=== PATIENT | male | born 1950 | race Caucasian/White ===

== ENCOUNTER 2019-08-27 12:12 | Emergency (ER) | payer MEDICARE, OTHER, SELFPAY ==
[2019-08-27 12:19] VITALS: BP 121/73; PULSE 70; RESP 16; TEMP 36.8; O2SAT 100
--- NOTE | 2019-08-27 12:31 | ED.GENADULT ---
HPI - General Adult General Chief complaint: Upper Respiratory Infection Stated complaint: cough/chest congestion Time Seen by Provider: 08/27/19 12:35 Source: patient and RN notes reviewed Mode of arrival: ambulatory Limitations: no limitations History of Present Illness HPI narrative: This is a 69 years old male presented office for evaluation of chest congestion for one 1-1/2-week. Cough is getting worse for the last 4 to 5-day. Stated he coughs so hard yesterday that he did not know that he passed out till his shouted at him. He also reports intermittent dizziness, described as disequilibrium. Denies chest pain, palpitation, shortness of breath, vomiting, or fever. He took cnea-ypo-lotgnlw Robitussin for his symptoms. His is sick with cold symptoms first before she passed around to him. Related Data Home Medications Medication Instructions Recorded Confirmed finasteride mg 06/27/19 06/27/19 Allergies Allergy/AdvReac Type Severity Reaction Status Date / Time No Known Allergies Allergy Unknown Verified 08/27/19 12:25 Review of Systems Review of Systems: Narrative: CONSTITUTIONAL: Denies fever or sweats. EYES: Denies visual changes ENT: Denies rhinorrhea, congestion, sore throat, otalgia. CARDIOVASCULAR: Denies chest pain, palpitation RESPIRATORY: Reports dyspnea and chest tightness when he cough GASTROINTESTINAL: Denies abdominal pain, nausea, vomiting, diarrhea. SKIN: Denies rash MUSCULOSKELETAL: Denies acute back pain NEUROLOGIC: Denies lightheaded PMFSH Past Medical History Medical History Asymptomatic hypertension Benign essential HTN BPH (benign prostatic hyperplasia) CKD (chronic kidney disease) CKD (chronic kidney disease) stage 3, GFR 30-59 ml/min Diverticulitis large intestine w/o perforation or abscess w/o bleeding Diverticulosis HTN (hypertension) Kidney cyst, acquired Right Pigmented skin lesion suspicious for malignant neoplasm Spondylosis, thoracic Umbilical hernia small, fat containing Surgical History Surgical History H/O blepharoplasty Family History Family History Father Hypertension Sibling Family history of kidney disease Family history of malignant neoplasm of kidney Patient's sister is Social History Social History Smoking status: Never smoker Second hand tobacco smoke exposure: No Alcohol intake: current Drinks per week: 1 Substance use: never Substance use type: does not use Gender identity (if verbalized by the patient): Male Comments At time of signature, I agree with nursing past medical, surgical, social and family history. There is no relevant family history pertinent to the presenting complaint. Exam Narrative: Exam Narrative: GENERAL: This is a well-nourished, well-developed patient, in no apparent distress. EYES: RIDGE. EMOI. No nystagmus noted. Sclera clear/white. Vision is grossly intact. EARS: External ears normal, auditory canals clear and without drainage, TMs normal without perforation. Hearing grossly intact. NOSE: External nose normal with no obvious nasal discharge, nares without redness, no rhinorrhea. THROAT: Mucous membranes moist, posterior pharynx clear. NECK: Neck supple, non-tender without lymphadenopathy, masses or thyromegaly. CARDIOVASCULAR: Regular rate and rhythm without murmurs, gallops, or rubs. RESPIRATORY: Clear to auscultation but diminished in the lower lobe, with occasional coughing during examination. Breath sounds equal bilaterally. No wheezes, rales, or rhonchi. GASTROINTESTINAL: Abdomen soft, non-tender, nondistended. Bowel sounds are active.No guarding. SKIN: warm, intact with no suspicious rash. NEURO: awake, alert, and oriented to person, place and time. There were no
== END 2019-08-27 12:45 | disposition home or self-care (01) ==
PROVIDERS: Emergency Provider Nurse Practitioner; PCP Family Medicine
DX: J06.9 Acute upper respiratory infection, unspecified (principal); N40.0 Benign prostatic hyperplasia without lower urinary tract symptoms; I12.9 Hypertensive chronic kidney disease with stage 1 through stage 4 chronic kidney disease, or unspecified chronic kidney disease; N18.3 Chronic kidney disease, stage 3 (moderate); M47.814 Spondylosis without myelopathy or radiculopathy, thoracic region
CPT/HCPCS: 99213; G0463

== ENCOUNTER → 2020-09-11 00:19 | Outpatient (CLI) | payer MEDICARE, OTHER, SELFPAY ==
[2020-09-11 19:13] LABS: SARS-CoV-2 RNA PCR Negative
== END ==
PROVIDERS: PCP Family Medicine; Visit Provider Internal Medicine Gastroenterology
DX: Z01.812 Encounter for preprocedural laboratory examination (principal); Z20.822 Contact with and (suspected) exposure to COVID-19
CPT/HCPCS: C9803; U0003; U0005

== ENCOUNTER 2020-09-15 02:12 | Day surgery (SDC) | payer MEDICARE, OTHER, SELFPAY ==
[2020-08-31 15:40] VITALS: BMI 30.2
[2020-09-15 07:24] VITALS: BP 134/81; PULSE 77; RESP 20; O2SAT 97
[2020-09-15] MEDS: LACTATED RINGERS 1,000 ML 150 ML IV CONT (07:31)
--- NOTE | 2020-09-15 07:43 | WPDANESEPPF ---
Anes - Initial Pre Proc Eval Procedure: Operation Date: 09/15/20 08:30 Proposed Procedures p Esophagogastroduodenoscopy - Marcus Irwin MD Date/Time: 09/15/20 07:43 Surgeon: Marcus Irwin MD Pre Op Diagnosis: Dysphagia Patient Data Age: 70 Gender: M Height: 6 ft 1 in Weight: 104.8 kg Last Vital Signs Pulse 77 09/15/20 07:24 Resp 20 09/15/20 07:24 BP 134/81 09/15/20 07:24 Pulse Ox 97 09/15/20 07:24 Allergies Allergy/AdvReac Type Severity Reaction Status Date / Time No Known Allergies Allergy Unknown Verified 09/15/20 07:22 Home Medications Medication Instructions Recorded Confirmed Type finasteride 5 mg PO DAILY 06/27/19 08/31/20 History losartan 100 mg tablet 100 mg PO DAILY #30 tablet 07/01/20 08/31/20 Rx amlodipine 5 mg tablet 5 mg PO DAILY #30 tablet 08/31/20 08/31/20 Rx aspirin 81 mg PO DAILY 08/31/20 08/31/20 History tamsulosin 0.4 mg capsule 0.4 mg PO DAILY #30 cap 09/01/20 09/01/20 Rx Patient hx anesthesia problems: none Family hx anesthesia problems: none PMFSH Past Medical History Medical History Asymptomatic hypertension Benign essential HTN BPH (benign prostatic hyperplasia) CKD (chronic kidney disease) CKD (chronic kidney disease) stage 3, GFR 30-59 ml/min Diverticulitis large intestine w/o perforation or abscess w/o bleeding Diverticulosis HTN (hypertension) Kidney cyst, acquired Right Pigmented skin lesion suspicious for malignant neoplasm Spondylosis, thoracic Umbilical hernia small, fat containing Surgical History Surgical History H/O blepharoplasty Family History Family History Father Hypertension Sibling Family history of kidney disease Family history of malignant neoplasm of kidney Patient's sister is Social History Social History (Updated 08/31/20 @ 13:44 by Soraida Keith) Social History: Smoking status: Former smoker Second hand tobacco smoke exposure: No Alcohol intake: never Drinks per week: 1 Substance use: never Substance use type: does not use Living arrangements: with family Gender identity (if verbalized by the patient): Male Spiritual care concerns: No Anes - Eval Final PreProcedure Day of Procedure 09/15/20 07:43 Patient weight: obese Heart: regular rate and rhythm Lungs: clear to auscultation Airway: Mallampati scale class II Neurological: alert and oriented Last oral intake: >/= 8 hours ASA classification: III Emergent: no Anesthetic plan: proceed Anesthesia type and monitoring: general GIVS and standard monitoring Informed Consent: The patient's anesthetic plan and its attendant risks and benefits were discussed with the patient/family/POA. Questions were solicited and answers provided to the satisfaction of the patient/family/POA.
--- NOTE | 2020-09-15 08:35 | PM.HPGS ---
History of Present Illness History of Present Illness Consent: Risks, benefits, and alternatives have been discussed and questions answered. Patient agrees to proceed with procedure. Chief complaint: Dysphagia Narrative: Juan Ramon Hay is a 70 year old male with choking after eating certain food and cough, feels like may go to wrong pipe . Never had EGD Review of Systems Constitutional: Constitutional: Denies headache(s) and Denies weakness Eyes: Eyes: Denies blurry vision ENT: Reports Normal hearing present, Denies headache(s) and Denies neck pain Cardiovascular: Cardiovascular: Denies chest pain and Denies dyspnea Respiratory: Respiratory: Denies dyspnea Gastrointestinal: Gastrointestinal: Reports no additional gastrointestinal complaints Genitourinary: Genitourinary: Denies dysuria Musculoskeletal: Musculoskeletal: Denies neck pain Integumentary/Breasts: Skin/Breast: Denies dry skin Neurologic: Reports Normal hearing present, Denies headache(s) and Denies weakness Psychiatric: Psychiatric: Denies anxiety Endocrine: Endocrine: Denies change in body appearance Hematologic/Lymphatic: Hematologic/Lymphatic: Denies easy bleeding Allergic/Immunologic: Allergic/Immunologic: Denies urticaria PMFSH Past Medical History Medical History Asymptomatic hypertension Benign essential HTN BPH (benign prostatic hyperplasia) CKD (chronic kidney disease) CKD (chronic kidney disease) stage 3, GFR 30-59 ml/min Diverticulitis large intestine w/o perforation or abscess w/o bleeding Diverticulosis HTN (hypertension) Kidney cyst, acquired Right Pigmented skin lesion suspicious for malignant neoplasm Spondylosis, thoracic Umbilical hernia small, fat containing Surgical History Surgical History H/O blepharoplasty Family History Family History Father Hypertension Sibling Family history of kidney disease Family history of malignant neoplasm of kidney Patient's sister is Social History Social History (Updated 08/31/20 @ 13:44 by Soraida Keith) Social History: Smoking status: Former smoker Second hand tobacco smoke exposure: No Alcohol intake: never Drinks per week: 1 Substance use: never Substance use type: does not use Living arrangements: with family Gender identity (if verbalized by the patient): Male Spiritual care concerns: No Meds Home Medications and Allergies Home Medications Medication Instructions Recorded Confirmed Type finasteride 5 mg PO DAILY 06/27/19 08/31/20 History losartan 100 mg tablet 100 mg PO DAILY #30 tablet 07/01/20 08/31/20 Rx amlodipine 5 mg tablet 5 mg PO DAILY #30 tablet 08/31/20 08/31/20 Rx aspirin 81 mg PO DAILY 08/31/20 08/31/20 History tamsulosin 0.4 mg capsule 0.4 mg PO DAILY #30 cap 09/01/20 09/01/20 Rx Allergies Allergy/AdvReac Type Severity Reaction Status Date / Time No Known Allergies Allergy Unknown Verified 09/15/20 07:22 Vital Signs Vital Signs - 24 hr 09/15/20 07:24 Pulse Rate 77 Respiratory Rate 20 Blood Pressure 134/81 Pulse Oximetry 97 Exam Const: General: comfortable and no acute distress HENMT: General nose exam: Normal nares present Eyes: General: appearance normal, both eyes and all related structures Neck: Neck: no JVD Resp: Auscultation: clear to auscultation bilaterally Cardio: Rate: regular rate Rhythm: regular rhythm GI: Inspection: non-distended GI Palp: Yes Soft to palpation Skin: General skin exam: normal color Neuro: General: gait normal Speech: normal speech Extrem: General: normal to inspection Psych: Mental Status: mental status grossly normal Assessment and Plan Assessment and plan (1) Choking: Code(s): T17.308A - Unspecified foreign body in larynx causing other injury, initial encount
[2020-09-15 08:51] VITALS: BP 91/64; PULSE 72; RESP 15; O2SAT 97
[2020-09-15 09:01] VITALS: BP 112/68; PULSE 72; RESP 16; O2SAT 97
[2020-09-15 09:11] VITALS: BP 128/64; PULSE 70; RESP 14; O2SAT 97
== END 2020-09-15 09:30 | disposition home or self-care (01) ==
PROVIDERS: PCP Family Medicine; Visit Provider Internal Medicine Gastroenterology
PROC: 0DJ08ZZ Inspection of Upper Intestinal Tract, Via Natural or Artificial Opening Endoscopic (ICD-10-PCS; CPT 43235; principal; 2020-09-15 08:30)
DX: R13.10 Dysphagia, unspecified (principal); R07.89 Other chest pain; K29.50 Unspecified chronic gastritis without bleeding; K21.00 Gastro-esophageal reflux disease with esophagitis, without bleeding; K44.9 Diaphragmatic hernia without obstruction or gangrene; I12.9 Hypertensive chronic kidney disease with stage 1 through stage 4 chronic kidney disease, or unspecified chronic kidney disease; N18.30 Chronic kidney disease, stage 3 unspecified; N40.0 Benign prostatic hyperplasia without lower urinary tract symptoms; Z87.891 Personal history of nicotine dependence; E66.9 Obesity, unspecified; Z68.30 Body mass index [BMI] 30.0-30.9, adult
CPT/HCPCS: 43239; 88305; J2001; J2704; J7120

== ENCOUNTER 2021-05-25 08:34 | Outpatient (CLI) | payer MEDICARE, OTHER, SELFPAY ==
[2021-05-25 09:25] LABS: Alanine Aminotransferase 28 U/L (4-50); Albumin Level 4.1 g/dL (3.5-5.1); Alkaline Phosphatase 40 U/L (38-126); Anion Gap 7 mmol/L (8-16); Aspartate Amino Transferase 29 U/L (17-59); Bilirubin,Total 0.7 mg/dL (0.2-1.3); Blood Urea Nitrogen 23 mg/dL (9-20); Calcium 9.3 mg/dL (8.4-10.2); Carbon Dioxide 27 mmol/L (22-30); Chloride 105 mmol/L (98-107); Estimated Glomerular Filt Rate 55; Glucose 116 mg/dL (65-110); Potassium 4.6 mmol/L (3.4-5.0); Sodium 139 mmol/L (137-145)
== END 2021-05-25 08:35 | disposition home or self-care (01) ==
PROVIDERS: PCP Family Medicine; Visit Provider Nurse Practitioner Gerontology
DX: N18.31 Chronic kidney disease, stage 3a (principal)
CPT/HCPCS: 36415; 80053

== ENCOUNTER 2021-08-01 08:15 | Day surgery (SDC) | payer MEDICARE, OTHER, SELFPAY ==
[2021-07-20 13:40] VITALS: BMI 30.5
[2021-08-01 11:01] VITALS: BP 119/78; PULSE 69; RESP 18; TEMP 35.7; O2SAT 100
[2021-08-01] MEDS: LACTATED RINGERS 1,000 ML 150 ML IV CONT (11:04)
--- NOTE | 2021-08-01 11:59 | WPDANESEPPF ---
Anes - Initial Pre Proc Eval Procedure: Operation Date: 08/01/21 13:15 Proposed Procedures p Screening Colonoscopy - Marcus Irwin MD Date/Time: 08/01/21 11:59 Surgeon: Marcus Irwin MD Pre Op Diagnosis: neoplasm screening Patient Data Age: 71 Gender: M Height: 1.85 m Weight: 101.5 kg Last Vital Signs Temp 35.7 C L 08/01/21 11:01 Pulse 69 08/01/21 11:01 Resp 18 08/01/21 11:01 BP 119/78 08/01/21 11:01 Pulse Ox 100 08/01/21 11:01 Allergies Allergy/AdvReac Type Severity Reaction Status Date / Time No Known Allergies Allergy Unknown Verified 08/01/21 11:00 Home Medications Medication Instructions Recorded Confirmed Type finasteride 5 mg PO DAILY 06/27/19 08/01/21 History aspirin 81 mg PO DAILY 08/31/20 08/01/21 History amlodipine 5 mg tablet 5 mg PO DAILY #90 tablet 02/01/21 08/01/21 Rx losartan 100 mg tablet See Rx Instructions .ROUTE 07/22/21 08/01/21 Rx .COMPLEX #90 tablet omeprazole 20 mg capsule,delayed 20 mg PO DAILY #30 cap 08/01/21 08/01/21 Rx release Patient hx anesthesia problems: none Family hx anesthesia problems: none Results Review: All pre-operative results and documents have been reviewed as part of the pre-operative evaluation. [facility] Past Medical History Medical History Asymptomatic hypertension Benign essential HTN BPH (benign prostatic hyperplasia) Choking CKD (chronic kidney disease) CKD (chronic kidney disease) stage 3, GFR 30-59 ml/min Diverticulitis large intestine w/o perforation or abscess w/o bleeding Diverticulosis Esophagitis determined by endoscopy HTN (hypertension) Hyperlipidemia Kidney cyst, acquired Right Pigmented skin lesion suspicious for malignant neoplasm Spondylosis, thoracic Umbilical hernia small, fat containing Surgical History Surgical History H/O blepharoplasty Family History Family History Father Hypertension Sibling Family history of kidney disease Family history of malignant neoplasm of kidney Patient's sister is Social History Social History (Updated 06/07/21 @ 13:32 by Soraida Keith) Social History: Smoking status: Never smoker Second hand tobacco smoke exposure: No Alcohol intake: never Alcohol use details: rarely Substance use: never Substance use type: does not use Living arrangements: with family Gender identity (if verbalized by the patient): Male Sexual Orientation (if Verbalized by the Patient): Straight or Heterosexual Spiritual care concerns: No Anes - Eval Final PreProcedure Day of Procedure 08/01/21 11:59 Patient weight: overweight Heart: regular rate and rhythm Lungs: clear to auscultation and normal air movement Airway: Mallampati scale class II Neurological: alert and oriented Last oral intake: >/= 8 hours ASA classification: III Emergent: no Anesthetic plan: proceed Anesthesia type and monitoring: general GIVS and standard monitoring Results Review: All pre-operative results and documents have been reviewed as part of the pre-operative evaluation. Informed Consent: The patient's anesthetic plan and its attendant risks and benefits were discussed with the patient/family/POA. Questions were solicited and answers provided to the satisfaction of the patient/family/POA.
--- NOTE | 2021-08-01 13:04 | PM.HPGS ---
History of Present Illness History of Present Illness Consent: Risks, benefits, and alternatives have been discussed and questions answered. Patient agrees to proceed with procedure. Chief complaint: neoplasm screening Narrative: Juan Ramon Hay is a 71 year old male with colon polyp about 8 years ago. Review of Systems Constitutional: Constitutional: Denies headache(s) and Denies weakness Eyes: Eyes: Denies blurry vision ENT: Reports Normal hearing present, Denies headache(s) and Denies neck pain Cardiovascular: Cardiovascular: Denies chest pain and Denies dyspnea Respiratory: Respiratory: Denies dyspnea Gastrointestinal: Gastrointestinal: Reports no additional gastrointestinal complaints Genitourinary: Genitourinary: Denies dysuria Musculoskeletal: Musculoskeletal: Denies neck pain Integumentary/Breasts: Skin/Breast: Denies dry skin Neurologic: Reports Normal hearing present, Denies headache(s) and Denies weakness Psychiatric: Psychiatric: Denies anxiety Endocrine: Endocrine: Denies change in body appearance Hematologic/Lymphatic: Hematologic/Lymphatic: Denies easy bleeding Allergic/Immunologic: Allergic/Immunologic: Denies urticaria PMFSH Past Medical History Medical History Asymptomatic hypertension Benign essential HTN BPH (benign prostatic hyperplasia) Choking CKD (chronic kidney disease) CKD (chronic kidney disease) stage 3, GFR 30-59 ml/min Diverticulitis large intestine w/o perforation or abscess w/o bleeding Diverticulosis Esophagitis determined by endoscopy HTN (hypertension) Hyperlipidemia Kidney cyst, acquired Right Pigmented skin lesion suspicious for malignant neoplasm Spondylosis, thoracic Umbilical hernia small, fat containing Surgical History Surgical History H/O blepharoplasty Family History Family History Father Hypertension Sibling Family history of kidney disease Family history of malignant neoplasm of kidney Patient's sister is Social History Social History (Updated 06/07/21 @ 13:32 by Soraida Keith) Social History: Smoking status: Never smoker Second hand tobacco smoke exposure: No Alcohol intake: never Alcohol use details: rarely Substance use: never Substance use type: does not use Living arrangements: with family Gender identity (if verbalized by the patient): Male Sexual Orientation (if Verbalized by the Patient): Straight or Heterosexual Spiritual care concerns: No Meds Home Medications and Allergies Home Medications Medication Instructions Recorded Confirmed Type finasteride 5 mg PO DAILY 06/27/19 08/01/21 History aspirin 81 mg PO DAILY 08/31/20 08/01/21 History amlodipine 5 mg tablet 5 mg PO DAILY #90 tablet 02/01/21 08/01/21 Rx losartan 100 mg tablet See Rx Instructions .ROUTE 07/22/21 08/01/21 Rx .COMPLEX #90 tablet omeprazole 20 mg capsule,delayed 20 mg PO DAILY #30 cap 08/01/21 08/01/21 Rx release Allergies Allergy/AdvReac Type Severity Reaction Status Date / Time No Known Allergies Allergy Unknown Verified 08/01/21 11:00 Vital Signs Vital Signs - 24 hr 08/01/21 11:01 Temperature 96.3 F L Pulse Rate 69 Respiratory Rate 18 Blood Pressure 119/78 Pulse Oximetry 100 Exam Const: General: comfortable and no acute distress HENMT: General nose exam: Normal nares present Eyes: General: appearance normal, both eyes and all related structures Neck: Neck: no JVD Resp: Auscultation: clear to auscultation bilaterally Cardio: Rate: regular rate Rhythm: regular rhythm GI: Inspection: non-distended GI Palp: Yes Soft to palpation Skin: General skin exam: normal color Neuro: General: gait normal Speech: normal speech Extrem: General: normal to inspection Psych: Mental Status: mental status grossly n
[2021-08-01 13:20] VITALS: BP 108/82; PULSE 70; RESP 14; O2SAT 94
[2021-08-01 13:30] VITALS: BP 121/95; PULSE 62; RESP 12; O2SAT 94
[2021-08-01 13:40] VITALS: BP 138/74; PULSE 67; RESP 16; O2SAT 99
== END 2021-08-01 13:54 | disposition home or self-care (01) ==
PROVIDERS: PCP Family Medicine; Visit Provider Internal Medicine Gastroenterology
PROC: 0DJD8ZZ Inspection of Lower Intestinal Tract, Via Natural or Artificial Opening Endoscopic (ICD-10-PCS; CPT 45378; principal; 2021-08-01 13:15)
DX: Z12.11 Encounter for screening for malignant neoplasm of colon (principal); K57.30 Diverticulosis of large intestine without perforation or abscess without bleeding; K64.8 Other hemorrhoids; Z86.010 Personal history of colon polyps; I12.9 Hypertensive chronic kidney disease with stage 1 through stage 4 chronic kidney disease, or unspecified chronic kidney disease; N18.30 Chronic kidney disease, stage 3 unspecified; N40.0 Benign prostatic hyperplasia without lower urinary tract symptoms; E78.5 Hyperlipidemia, unspecified; M47.814 Spondylosis without myelopathy or radiculopathy, thoracic region
CPT/HCPCS: G0105; J2704; J7120

== ENCOUNTER 2023-04-06 08:10 | Emergency (ER) | payer MEDICARE, OTHER, SELFPAY ==
--- NOTE | 2023-04-06 08:20 | ED.EAR ---
HPI - Ear Problem General Chief complaint: Ear Stated complaint: Right Earache Source: patient and RN notes reviewed History of Present Illness HPI Narrative: 73 yo M Presents to urgent care with complaints of right ear pain and muffled sound x 3 days. Denies any fevers, chills, congestion, chest pain, SOB, N/V/D. Related Data Home Medications Medication Instructions Recorded Confirmed aspirin 81 mg tablet 81 mg PO DAILY 08/31/20 04/06/23 atorvastatin 20 mg tablet 20 mg PO DAILY 12/08/22 04/06/23 Allergies Allergy/AdvReac Type Severity Reaction Status Date / Time No Known Allergies Allergy Unknown Verified 04/06/23 08:33 Review of Systems Review of Systems: CONSTITUTIONAL: Denies fever, chills, or sweats. EYES: Denies visual changes, redness, or discharge. ENT: Right ear pain and muffled sound CARDIOVASCULAR: Denies chest pain, palpitations, or edema. RESPIRATORY: Denies cough or dyspnea. GASTROINTESTINAL: Denies abdominal pain, nausea, vomiting, or diarrhea. GENITOURINARY: Denies dysuria or hematuria. SKIN: Denies rash or itching. MUSCULOSKELETAL: Denies back pain, joint pain, or myalgia. NEUROLOGIC: Denies headache, numbness, or weakness. Pertinent positives per HPI. [facility] Past Medical History Medical History Asymptomatic hypertension Benign essential HTN BPH (benign prostatic hyperplasia) Choking Chronic bilateral low back pain without sciatica CKD (chronic kidney disease) CKD (chronic kidney disease) stage 3, GFR 30-59 ml/min Diverticulitis large intestine w/o perforation or abscess w/o bleeding Diverticulitis of large intestine without perforation or abscess Diverticulosis Diverticulosis of colon Esophagitis determined by endoscopy Essential (primary) hypertension Grade I hemorrhoids HTN (hypertension) Hyperlipidemia Internal derangement of knee involving lateral meniscus Kidney cyst, acquired Right Nocturia Pigmented skin lesion suspicious for malignant neoplasm 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, thoracic Tinnitus of both ears Umbilical hernia small, fat containing Vertigo Surgical History Surgical History H/O blepharoplasty Hx of cardiac cath Family History Family History Father Hypertension Sibling Family history of kidney disease Family history of malignant neoplasm of kidney Patient's sister is Social History Social History (Updated 03/08/23 @ 09:23 by Soraida Keith) Social History: Smoking status: Former smoker Second hand tobacco smoke exposure: No Alcohol intake: never Alcohol use details: rarely Substance use: never Substance use type: does not use Lack of Transportation: No Lack of Food: Never True Current Housing: I Have Housing Concerned About Future Housing: No Difficulty Paying Gas/Electric Bills: No Difficulty Paying for Meds: No Currently Unemployed: YES Education: Don't Know Difficulty w/ Childcare or Family Care: No Living arrangements: with family Occupation/Education: retired Gender identity (if verbalized by the patient): Male Sexual Orientation (if Verbalized by the Patient): Straight or Heterosexual Spiritual care concerns: No Agree to blood products: Yes Comments At the time of my signature, I reviewed and agree with the nursing past medical, surgical, social, and family history. There is no relevant family history pertinent to the patient complaint. Exam Narrative: GENERAL: This is a well-nourished, well-developed patient, in no apparent distress. HEAD: normocephalic, atraumatic. EYES: Sclera clear/white. Vision is grossly intact. EARS: External ears normal, auditory canals clear and without drainage, Left TM normal without perforation. Hearing grossly intact. Right TM is partial
[2023-04-06 08:24] VITALS: BP 118/75; PULSE 69; RESP 18; TEMP 35.9; O2SAT 96
== END 2023-04-06 08:39 | disposition home or self-care (01) ==
PROVIDERS: Emergency Provider Nurse Practitioner Family; PCP Family Medicine
DX: H66.90 Otitis media, unspecified, unspecified ear (principal); I12.9 Hypertensive chronic kidney disease with stage 1 through stage 4 chronic kidney disease, or unspecified chronic kidney disease; N18.30 Chronic kidney disease, stage 3 unspecified; Z79.82 Long term (current) use of aspirin; Z87.891 Personal history of nicotine dependence
CPT/HCPCS: 99213; G0463

== ENCOUNTER 2023-05-15 07:28 | Outpatient (CLI) | payer MEDICARE, OTHER, SELFPAY ==
--- NOTE | ~2023-05-15 | CT_ITS ---
EXAMINATION:CT diagnostic chest wo con DATE: 05/15/2023 07:50 INDICATION: Aortic root dilatation. TECHNIQUE: Computed tomography (CT) of the chest was performed without intravenous contrast. Automate d exposure control and iterative reconstruction technique were employed. The dose-length product (DLP ) was 407.98 mGy-cm. COMPARISON: CT abdomen and pelvis 07/19/2017 FINDINGS: There is mild atelectasis bilaterally. No pleural effusion. The heart size is normal. No pe ricardial effusion. The aorta measures 4.2 cm at the sinuses of Valsalva, 3.4 cm at the sinotubular j unction, 4.1 cm in the mid ascending aorta, 3.2 cm cyst at the aortic isthmus, and 2.5 cm in the mid descending aorta. There is severe spondylosis of mid thoracic spine. IMPRESSION: 1. Ectasia of ascending aorta measuring up to 4.2 cm at the sinuses of Valsalva. Reviewed, dictated and finalized at location E. GAGE ASSISTANT IMPRESSION: 1. Ectasia of ascending aorta measuring up to 4.2 cm at the sinuses of Valsalva .
== END 2023-05-15 07:29 | disposition home or self-care (01) ==
PROVIDERS: PCP Family Medicine; Visit Provider Internal Medicine Cardiovascular Disease
DX: I77.810 Thoracic aortic ectasia (principal)
CPT/HCPCS: 71250

== ENCOUNTER 2024-07-08 06:56 | Outpatient (CLI) | payer MEDICARE, OTHER, SELFPAY ==
--- NOTE | ~2024-07-08 | CT_ITS ---
CT diagnostic chest wo [facility] Ordering provider: Harley Fan MD History: 74 years Male with . AORTIC ROOT DILATION . Comparison: None. Technique: CT chest without IV contrast. FINDINGS: VISUALIZED THORACIC INLET: Normal. Radiation reduction technique utilized The dose-length product was 421.57 mGy-cm. MEDIASTINUM: Aorta/coronary arteries: Mild atheromatous disease. Ventricle measures 3.9 cm. Heart/other: The heart is not enlarged. Trace of pericardial effusion. Lymph nodes: No mediastinal or hilar adenopathy. LUNGS: No pulmonary nodules or masses. No infiltrates or effusions. No pneumothorax. VISUALIZED UPPER ABDOMEN: the visualized upper abdomen is normal. MUSCULOSKELETAL: Soft tissues: The superficial soft tissues are normal. Bones: Age appropriate degenerative changes of the spine. IMPRESSION: 1. Ascending aorta measures 3.9 CNM. 2. Trace of pericardial effusion. 3. No acute cardiopulmonary pathology. Reviewed, dictated and finalized at location A. PT GIRL
== END 2024-07-08 06:57 | disposition home or self-care (01) ==
PROVIDERS: PCP Family Medicine; Visit Provider Internal Medicine Cardiovascular Disease
DX: I77.810 Thoracic aortic ectasia (principal)
CPT/HCPCS: 71250

== ENCOUNTER 2024-08-07 11:13 | Outpatient (CLI) | payer MEDICARE, OTHER, SELFPAY ==
--- OUTSIDE RECORDS SUMMARY | 2024-08-07 11:22 | XMS_ITS | Clinical Summary ---
Author Organization [facility] [address] Address [address] [place] [address] Care Team Providers Care Product Technology Scientist Name Role Phone Nicolette Bella MD Primary Care Provider Allergies No known active allergies Medications aspirin 81 mg enteric coated tabletIndications :Abnormal stress test,Benign hypertension Take 1 tablet (81 mg total) by mouth daily 30 tablet 11 0 Active nitroglycerin (NITROSTAT) 0.[address] 1 tablet (0.4 mg total) under the tongue every 5 (five) minutes as needed for chest pain May repeat dose q 5 min, up to 3 doses total 100 tablet 11 0 Active losartan (COZAAR) 100 mg tablet Take 0.5 tablets (50 mg total) by mouth daily 1 Active omeprazole (PriLOSEC) 40 mg capsule Take 1 capsule (40 mg total) by mouth daily 1 Active amLODIPine (NORVASC) 5 mg tablet Take 1 tablet (5 mg total) by mouth daily 1 Active atorvastatin (LIPITOR) 20 mg tabletIndications :Aortic root dilatation (CMS/HCC) (HCC),Coronary artery spasm (HCC) TAKE 1 TABLET(20 MG) BY MOUTH DAILY 90 tablet 4 Active Active Problems Problem Noted Date Diagnosed Date Orthostasis 11/14/2023 Aortic root dilatation (CMS/HCC) 10/08/2020 Coronary artery spasm 12/18/2019 Abnormal stress test 08/29/2019 Lipid screening 08/29/2019 Tussive syncope 08/29/2019 PVC (premature ventricular contraction) 08/29/19 20 SOB (shortness of breath) on exertion 08/29/2019 Overview (08/29/2019): Added automatically from request for surgery [id number] Benign hypertension 09/22/2014 Overview (09/28/2016): HTN (hypertension), benign Abnormal echocardiography 09/22/2014 Overview (09/28/2016): Abnormal stress echo Encounters Date Type Department Care Team Description 07/08/2024 Orders Only [facility] Health Information Management [address] [place] [address] Harley Fan MD 07/02/2024 8:15 AM AUTOMATION CONTROLS EXPERT Office Visit [facility] Cardiology [address] [place] [address] Harley Fan MD Benign hypertension (Primary Dx); Orthostasis; Aortic root dilatation (CMS/HCC) (HCC); PVC (premature ventricular contraction) from Last 3 Months Surgical History Surgery Date Site/Laterality Comments HERNIA REPAIR age 7 KNEE ARTHROSCOPY '06, '07 VASECTOMY EYE SURGERY BLEPHAROPLASTY Bilateral Medical History Medical History Date Comments BPH (benign prostatic hyperplasia) Arthritis SOB (shortness of breath) on exertion Benign hypertension Abnormal stress test Tussive syncope PVC (premature ventricular contraction) Abnormal ECG Family History Medical History Relation Name Comments cerebral hemorrahage Father d/t blo dd thinners Cerebral hemorrahage Mother Heart attack Paternal Grandfather Relation Name Status Comments Father Mother Paternal Grandfather Social History Tobacco Use Types Packs/Day Years Used Date Smoking Tobacco: Never Smokeless Tobacco: Never Tobacco Cessation:Counseling Given: Not Answered Alcohol Use Standard Drinks/Week Comments No 0 (1 standard drink = 0.6 oz pur e alcohol) Sex and Gender Information Value Date Recorded Sex Assigned at Not on file Legal Sex Male 12:45 AM AUTOMATION CONTROLS EXPERT Gender Identity Not on file Sexual Orientation Not on file Obstetrics History Last Filed Vital Signs Vital Sign Reading Time Taken Comments Blood Pressure 104/68 07/02/2024 8:21 AM AUTOMATION CONTROLS EXPERT Pulse 73 07/02/2024 8:21 AM AUTOMATION CONTROLS EXPERT Temperature 36.6 C (97.8 F) 11/11/2019 6:45 AM CDT Respiratory Rate 16 11/11/2019 6:45 AM CDT Oxygen Saturation 95% 07/02/2024 8:21 AM AUTOMATION CONTROLS EXPERT Inhaled Oxygen Concentration - - Weight 104.8 kg (231 lb) 07/02/2024 8:21 AM AUTOMATION CONTROLS EXPERT Height 185.4 cm (6' 1 ) 07/02/2024 8:21 AM AUTOMATION CONTROLS EXPERT Body Mass Index 30.48 07/02/2024 8:21 AM AUTOMATION CONTROLS EXPERT Plan of Treatment Health Maintenance Due Date Last Done Comments Colon Cancer Screening-Colonoscopy 1950 Depression Screening 1950 Hepatitis C Screening 1950 DTaP/Tdap/Td Vaccine (1 - Tdap) 02/17/1963 Hepatitis B Screening 02/17/1970 Zoster Vaccine (1 of 2) 02/17/2002 Well Visit 65+ 02/17/2017 Fall Risk Assessment 11/10/2020 11/11/2019, 08/29/19 20 Influenza Vaccine (#1) 2024 9, 03/24/2018, 03/19/2017 Pneumococcal vaccine 65+ Completed 03/24/2018, 02/24 Medical Devices Implanted Type Area Monorail Helper Device Identifier Shelf Expiration Date Model / Serial / Lot [employer] [id number] Device Closure Angio-Seal Vip Bondek-Plus Polyglyd L70 Cm Od6 Fr Odsec.035 In Vascular - [id number] Implanted:Qty: 1 on 11/11/2019 by Kalpana Berry MD at [facility] [employer] [id number] / / Procedures Procedure Name Priority Date/Time Associated Diagnosis Comments SCAN - RADIOLOGY/IMAGING 07/08/2024 from Last 3 Months Results * SCAN - RADIOLOGY/IMAGING (07/08/2024) Anatomical Region Laterality Modality Other us Harley Fan MD Final Res ult from Last 3 Months Insurance MEDICARE [employer] [place] [employer] [place] Advance Directives For more information, please contact: [phone] * Full Code (Latest Code Status on File) Date Activated Date Inactivated Comments 11/11/2019 9:33 AM 11/11/2019 4:09 PM Care Teams Product Technology Scientist Relationship Specialty Start Date End Date Nicolette Bella MD [address] [place] [id number] PCP - General Family Medicine 08/20/19
--- OUTSIDE RECORDS SUMMARY | 2024-08-07 11:22 | XMS_ITS | Referral Summary ---
Author Organization [place] [address] Address [address] [facility] [address] [place] [address] Care Team Providers Care Line Construction Superintendent Name Role Phone Nicolette Bella MD Primary Care Provider Encounters Date Type Department Care Team Description 07/08/2024 Orders Only [facility] Health Information Management [address] [place] [address] Harley Fan MD 07/02/2024 8:15 AM TENANT COORDINATOR Office Visit [facility] Cardiology [address] [place] [address] [address] [place] [address] Harley Fan MD Benign hypertension (Primary Dx); Orthostasis; Aortic root dilatation (CMS/HCC) (HCC); PVC (premature ventricular contraction) from Last 3 Months Allergies No known active allergies Medications aspirin [...] (08/29/2019): Added automatically from request for surgery [id number] Benign hypertension 09/22/2014 Overview (09/28/2016): HTN (hypertension), benign Abnormal echocardiography 09/22/2014 Overview (09/28/2016): Abnormal stress echo Social History Tobacco Use Types Packs/Day Years Used Date Smoking Tobacco: Never Smokeless Tobacco: Never Tobacco Cessation:Counseling Given: Not Answered Alcohol Use Standard Drinks/Week Comments No 0 (1 standard drink = 0.6 oz pur e alcohol) Sex and Gender Information Value Date Recorded Sex Assigned at Not on file Legal Sex Male 12:45 AM TENANT COORDINATOR Gender Identity Not on file Sexual Orientation Not on file Last Filed Vital Signs Vital Sign Reading Time Taken Comments Blood Pressure 104/68 07/02/2024 8:21 AM TENANT COORDINATOR Pulse 73 07/02/2024 8:21 AM TENANT COORDINATOR Temperature 36.6 C (97.8 F) 11/11/2019 6:45 AM CDT Respiratory Rate 16 11/11/2019 6:45 AM CDT Oxygen Saturation 95% 07/02/2024 8:21 AM TENANT COORDINATOR Inhaled Oxygen Concentration - - Weight 104.8 kg (231 lb) 07/02/2024 8:21 AM TENANT COORDINATOR Height 185.4 cm (6' 1 ) 07/02/2024 8:21 AM TENANT COORDINATOR Body Mass Index 30.48 07/02/2024 8:21 AM TENANT COORDINATOR Plan of Treatment Not on file Medical Devices Implanted Type Area Stylist Assistant Device Identifier Shelf Expiration Date Model / Serial / [facility] [id number] Device Closure Angio-Seal Vip Bondek-Plus Polyglyd L70 Cm Od6 Fr Odsec.035 In Vascular - [id number] Implanted:Qty: 1 on 11/11/2019 [facility] [id number] / / Procedures Procedure Name Priority Date/Time Associated Diagnosis Comments SCAN - RADIOLOGY/IMAGING 07/08/2024 from Last 3 Months Results * SCAN - RADIOLOGY/IMAGING (07/08/2024) Anatomical Region Laterality Modality Other us Harley Fan MD Final Res ult from Last 3 Months Insurance MEDICARE [facility] [place] MEDICARE [employer] [place] [employer] [place] Advance Directives For more information, please contact: [phone] * Full Code (Latest Code Status on File) Date Activated Date Inactivated Comments 11/11/2019 9:33 AM 11/11/2019 4:09 PM Care Teams Line Construction Superintendent Relationship Specialty Start Date End Date Nicolette Bella MD [address] [address] PCP - General Family Medicine 08/20/19
--- OUTSIDE RECORDS SUMMARY | 2024-08-07 11:22 | XMS_ITS | Continuity of Care Document ---
Author Organization [facility] Address [address] [place] [address] [address] [place] [address] Phone Care Team Providers Care Casework Manager Name Role Phone Mike Galo Unavailable Unavailable [...] Diagnoses Date Provider Providers Copied on Encounter [facility], [address] [place] [address] [address], [place], [place], [id number], [place] tel:[phone] [facility] No Information Mar-0 3-200 [address] [place], [address], [place]. tel:[phone] [facility], [address] [place] [address] [address], [place], [place], [id number], [place] tel:[phone] [facility] No Information Dec-0 3-200 7 [address] [place], [address], [place]. tel: [phone] [facility], [address] [place] [address] [address], [place], [place], [id number], [place] tel:[phone] [facility] No Information Oct-2 2-200 7 [address] [place], [address], [place]. tel:[phone] [facility], [address] [place] [address] [address], [place], [place], [id number], [place] tel:[phone] [facility] No Information Oct-0 8-200 7 [address] [place], [address], [place]. tel:[phone] Office Consultation [facility], [address] [place] [address] [address], [place], [place], [id number], [place] tel:[phone] [facility] No Information Sep-2 0-200 7 [address] [place], [address], [place]. tel:[phone] Referring Provider: Darryn Gómez MD [address], [address] [place], [address] . tel:[phone] Family History Family Member Type Diagnosis Age [...]
[2024-08-07 12:39] LABS: Alanine Aminotransferase 40 U/L (6-50); Alkaline Phosphatase 41 U/L (38-126); Anion Gap 9 mmol/L (4-12); Aspartate Amino Transferase 34 U/L (17-59); Bilirubin,Total 0.7 mg/dL (0.2-1.3); Blood Urea Nitrogen 23 mg/dL (9-20); Calcium 9.1 mg/dL (8.4-10.2); Carbon Dioxide 24 mmol/L (22-30); Chloride 103 mmol/L (98-107); Estimated Glomerular Filt Rate > 60; Glucose 85 mg/dL (65-110); Potassium 4.2 mmol/L (3.4-5.0); Sodium 136 mmol/L (137-145)
== END 2024-08-07 11:14 | disposition home or self-care (01) ==
PROVIDERS: PCP Family Medicine; Visit Provider Family Medicine
DX: I10 Essential (primary) hypertension (principal)
CPT/HCPCS: 36415; 80053

== ENCOUNTER 2025-02-11 16:59 | Emergency (ER) | payer MEDICARE, OTHER, SELFPAY ==
--- OUTSIDE RECORDS SUMMARY | 2007-08-26 08:17 | XMS_ITS | Continuity of Care Document ---
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 Name Role Phone Mike Galo Unavailable Unavailable Procedures Procedure Date Eye Exam Established Pt Ophthalmoscopy, Subsequent Eye Exam Established Pt Ophthalmoscopy, Subsequent Eye Exam Established Pt Ophthalmoscopy, Subsequent Treatment Of Retinal Lesion Office Consultation Ophthalmoscopy Fluorescein Angiography Fundus Photography W/ Report Injection Eye Drug Kenalog/Triamcinolone Acetonide Inj Advance Directives Directive Yes / No Effective Date File Name No Information Encounters Encounter Description Practice Location Reason(s) For Visit Diagnoses Date Provider Providers Copied on Encounter [facility], [address] [place] [address] [address], [place], [place], [id number], [place] tel:[phone] [facility] No Information Mar-0 3-200 8 [address] [place], [address], [place]. tel:[phone] [facility], [address] [place] [address] [address], [place], [place], [id number], [place] tel:[phone] [facility] No Information Dec-0 3-200 7 [address] [place], [address], [place]. tel: [phone] [facility], [address] [place] [address] [address], [place], [place], [id number], [place] tel:[phone] [facility] No Information Oct-2 2-200 7 [address] [place], [address], [place]. tel:[phone] [facility], [id number] [place] [address] [address], [place], [place], [id number], [place] tel:[phone] [facility] No Information Oct-0 8-200 7 [address] [place], [address], [place]. tel:[phone] Office Consultation [facility], [address] [place] [address] [address], [place], [place], [id number], [place] tel:[phone] [facility] No Information Sep-2 0-200 7 [address] [place], [address], [place]. tel:[phone] Referring Provider: Darryn Gómez MD P, [address] [place], [address] . tel:[phone] Family History Family Member Type Diagnosis Age At Onset No Information Payers Payer name Insurance type Covered constitution party ID Authoriza tion(s) No Information Social History Type Description Quantity Date Captured Comments Sex Male Smoking Status No Information Chief Complaint And Reason For Visit No Information Reason For Referral Reason For Referral No Information History Of Present Illness Encounter Date Complaint History Of Prese nt Illness No Information Functional Status Date Functional Assessmen t No Information Instructions Date Instruction Additional Infor mation No Information Assessments Type Assessment Date No Information Patient Care Teams Name Effective Dates (start - stop) Status Members No Information
--- OUTSIDE RECORDS SUMMARY | 2025-02-11 17:01 | XMS_ITS | Clinical Summary ---
Author Organization [facility] [address] Address [address] [place] [address] Care Team Providers Care Pediatric Genetic Counselor Name Role Phone Nicolette Bella MD Primary Care Provider Allergies No known active allergies Medications aspirin 81 mg enteric coated tabletIndications :Abnormal stress test,Benign hypertension Take 1 tablet (81 mg total) by mouth daily 30 tablet 11 0 Active losartan (COZAAR) 100 mg tablet Take 0.5 tablets (50 mg total) by mouth daily 1 Active omeprazole (PriLOSEC) 40 mg capsule Take 1 capsule (40 mg total) by mouth daily 1 Active amLODIPine (NORVASC) 5 mg tablet Take 1 tablet (5 mg total) by mouth daily 1 Active atorvastatin (LIPITOR) 20 mg tabletIndications :Aortic root dilatation,Young ry artery spasm TAKE 1 TABLET(20 MG) BY MOUTH DAILY 90 tablet 2 5 Active nitroglycerin (NITROSTAT) 0.[address] 1 tablet (0.4 mg total) under the tongue every 5 (five) minutes as needed for chest pain May repeat dose q 5 min, up to 3 doses total 25 tablet 2 5 11/19/19 26 Active Active Problems Problem Noted Date Diagnosed Date Orthostasis 11/14/2023 Aortic root dilatation 10/08/2020 Coronary artery spasm 12/18/2019 Abnormal stress test 08/29/2019 Lipid screening 08/29/2019 Tussive syncope 08/29/2019 PVC (premature ventricular contraction) 08/29/19 20 SOB (shortness of breath) on exertion 08/29/2019 Overview (08/29/2019): Added automatically from request for surgery [id number] Benign hypertension 09/22/2014 Overview (09/28/2016): HTN (hypertension), benign Abnormal echocardiography 09/22/2014 Overview (09/28/2016): Abnormal stress echo Encounters Date Type Department Care Team Description 11/18/[address] [facility] Medical Group Cardiology [address] [place] [address] Harley Fan MD Med Refill from Last 3 Months Surgical History Surgery [...] on file Legal Sex Male 12:45 AM MUSIC COMPOSITION TEACHER Gender Identity Not on file Sexual Orientation Not on file Obstetrics History Last Filed Vital Signs Vital Sign Reading Time Taken Comments Blood Pressure 104/68 07/02/2024 8:21 AM MUSIC COMPOSITION TEACHER Pulse 73 07/02/2024 8:21 AM MUSIC COMPOSITION TEACHER Temperature 36.6 C (97.8 F) 11/11/2019 6:45 AM CDT Respiratory Rate 16 11/11/2019 6:45 AM CDT Oxygen Saturation 95% 07/02/2024 8:21 AM MUSIC COMPOSITION TEACHER Inhaled Oxygen Concentration - - Weight 104.8 kg (231 lb) 07/02/2024 8:21 AM MUSIC COMPOSITION TEACHER Height 185.4 cm (6' 1) 07/02/2024 8:21 AM MUSIC COMPOSITION TEACHER Body Mass Index 30.48 07/02/2024 8:21 AM MUSIC COMPOSITION TEACHER Plan of Treatment Health Maintenance Due Date Last Done Comments Colon Cancer Screening-Colonoscopy 1950 Depression Screening 1950 Hepatitis C Screening 1950 DTaP/Tdap/Td Vaccine (1 - Tdap) 02/17/1963 Hepatitis B Screening 02/17/1970 Zoster Vaccine (1 of 2) 02/17/2002 Well Visit 65+ 02/17/2017 Fall Risk Assessment 11/10/2020 11/11/2019, 08/29/19 20 Influenza Vaccine (#1) 2025 9, 03/24/2018, 03/19/2017 Pneumococcal vaccine 65+ Completed 03/24/2018, 02/24 Medical Devices Implanted Type Area Burlap Roll Coverer Device Identifier Shelf Expiration Date Model / Serial / Lot [facility] [id number] Device Closure Angio-Seal Vip [employer]dek-Plus Polyglyd L70 Cm Od6 Fr Odsec.035 In Vascular - [id number] Implanted:Qty: 1 on 11/11/2019 by Kalpana Berry MD at [facility] [employer] [id number] / / Insurance MEDICARE PH[employer]ICIANS [facility] [place] Member Subscriber Plan / Payer (Ef fective 2017-Present) Name:Juan Ramon Hay Relation to Subscriber:Self Name:Juan Ramon Hay Payer ID:[id number] Group ID:Not on file Type:Headspace Address: [facility] [address] [place], [place] MEDICARE PHYSICIANS [facility] INS [place] Member Subscriber Plan / Payer (Ef fective 2017-Present) Name:Juan Ramon Hay Relation to Subscriber:Self Name:Juan Ramon Hay Payer ID:[id number] Group ID:Not on file Type:COMMERCIAL Address: [address] [place], [place] Advance Directives For more information, please contact: [phone] * Full Code (Latest Code Status on File) Date Activated Date Inactivated Comments 11/11/2019 9:33 AM 11/11/2019 4:09 PM Care Teams Pediatric Genetic Counselor Relationship Specialty Start Date End Date Nicolette Bella MD [address] [facility] [address] [place] [address] PCP - General Family Medicine 08/20/19
[2025-02-11 17:04] VITALS: BP 120/64; PULSE 75; RESP 16; TEMP 36.2; O2SAT 99
--- NOTE | 2025-02-11 17:19 | ED_ITS ---
HPI - Skin/Abscess/Foreign Bdy General Chief complaint: Skin/Abscess/Foreign Body Stated complaint: bug bite Time Seen by Provider: 02/11/25 17:20 Source: patient Mode of arrival: ambulatory Limitations: no limitations History of Present Illness HPI narrative: [age] presented possible insect bite or sting to the left side at the belt line. Endorses redness and tenderness with palpation surrounding a blistered area. States he was cutting grass yesterday noted redness swelling to the left side last night, but does not recall an insect. Denies itching or drainage to the area. Denies lip, tongue, or throat swelling, shortness of breath or wheezing. Has not taken anything for symptoms. Related Data Home Medications ?Medication ?Instructions ?Recorded ?Confirmed ?Last Taken ?Type aspirin 81 mg tablet 81 mg PO DAILY 08/31/2008/2409/14/20 History atorvastatin 20 mg tablet 20 mg PO DAILY 12/08/2208/24 Unknown History Allergies Allergy/AdvReac Type Severity Reaction Status Date / Time No Known Allergies Allergy Unknown Verified 02/11/25 17:07 Review of Systems Review of Systems: CONSTITUTIONAL: Denies body aches, fever, chills, or sweats. EYES: Denies visual changes, redness, or discharge. CARDIOVASCULAR: Denies chest pain, palpitations, or edema. RESPIRATORY: Denies cough or dyspnea. GASTROINTESTINAL: Denies abdominal pain, nausea, vomiting, or diarrhea. SKIN: reports blister and redness to left side MUSCULOSKELETAL: Denies back pain, joint pain, or myalgia. NEUROLOGIC: Denies headache, numbness, tingling, or weakness. 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 Nocturia Internal derangement of knee involving lateral meniscus Grade I hemorrhoids Essential (primary) hypertension Diverticulosis of colon Diverticulitis of large intestine without perforation or abscess Chronic bilateral low back pain without sciatica Esophagitis determined by endoscopy Hyperlipidemia Colon cancer screening Dry throat Choking due to food (regurgitated) Dysphagia Cough due to MICHELLE inhibitor HTN (hypertension) Pigmented skin lesion suspicious for malignant neoplasm Benign essential HTN CKD (chronic kidney disease) stage 3, GFR 30-59 ml/min Asymptomatic hypertension BPH (benign prostatic hyperplasia) Umbilical hernia small, fat containing Spondylosis, thoracic Kidney cyst, acquired Right Diverticulitis large intestine w/o perforation or abscess w/o bleeding Diverticulosis Surgical History Surgical History Hx of cardiac cath H/O blepharoplasty Family History Family History Father Hypertension Sibling Family history of kidney disease Family history of malignant neoplasm of kidney Patient's sister is Social History Social History Social History: Smoking status: Never smoker Second hand tobacco smoke exposure: No Alcohol intake: never Alcohol use details: rarely Substance use: never Substance use type: does not use Lack of Transportation: No Lack of Food: Never True Current Housing: I Have Housing Concerned About Future Housing: No Difficulty Paying Gas/Electric Bills: No Difficulty Paying for Meds: No Currently Unemployed: YES Education: Don't Know Difficulty w/ Childcare or Family Care: No Living arrangements: with family Occupation/Education: retired Gender identity (if verbalized by the patient): Male Sexual Orientation (if Verbalized by the Patient): Straight or Heterosexual Spiritual care concerns: No Agree to blood products: Yes Comments At time of signature, I have reviewed and agree with nursing past medical, surgical, social and family history unless otherwise noted. Please see nursing chart for further information. There is no relevant family history pertinent to the presenting complaint Exam Narrative: GENERAL: Well-appearing EYES: conjunctivae clear, and EOMI. ENT: Mucous membranes moist. Oropharynx without edema, erythema or lesions. CHEST: Clear to auscultation. HEART: Regular rate and rhythm. SKIN: Warm, dry. Left waist area with fluid filled blister 1.5cm diameter, surrounding erythema extending and narrowing towards abdomen approx [id number]. Tender with palpation. No drainage. NEURO: Alert and oriented x3. Course Course Emergency Course: Patient is aware of diagnosis, understands and agrees to treatment plan. Anticipatory guidance given. Patient agrees to follow-up as directed and is aware of reasons to seek care at the emergency department. Portions of this record may have been created with voice recognition software Level of Care: Express Care Visit Vital Signs Vital signs: Vital Signs Temperature 97.2 F L 02/11/25 17:04 Pulse Rate 75 02/11/25 17:04 Respiratory Rate 16 02/11/25 17:04 Blood Pressure 120/64 02/11/25 17:04 Pulse Oximetry 99 02/11/25 17:04 Oxygen Delivery Room Air 02/11/25 17:04 Temperature 97.2 F L 02/11/25 17:04 Pulse Rate 75 02/11/25 17:04 Respiratory Rate 16 02/11/25 17:04 Blood Pressure 120/64 02/11/25 17:04 Pulse Oximetry 99 02/11/25 17:04 Oxygen Delivery Room Air 02/11/25 17:04 Reviewed MDM - Skin/Abscess/Foreign Bdy MDM Narrative Medical decision making narrative: Discussed physical exam findings; blister with surrounding erythema to left side. Denies itching to the site. Will send abx. Advised supportive measures and signs/symptoms to go to the ER. Pt is appropriate for outpt treatment and f/u. Differential Diagnosis Differential diagnosis: Likely abscess of skin or subcutaneous tissue, viral exanthem, dermatophytosis, urticaria, herpes zoster, cellulitis, eczema, insect bites, impetigo and contact dermatitis Discharge Plan Discharge Clinical Impression: Insect bites Patient Disposition: Home Condition: Stable Instructions: Antibiotic Form, Insect Bite or Sting (ED) Additional Instructions: Take antibiotic as directed Wash the area with gentle soap and water only. Keep the blister intact if possible Avoid scratching when possible to prevent worsening of the condition and disruption of the skin that could lead to bacterial infection To relieve itching, place a cool washcloth or some ice over the area that itches, rather than scratching Follow up with primary care provider in 3 days Go to the ER for any worsening symptoms or concerns Patient Language: Romansh Prescriptions: New amoxicillin-pot clavulanate 875-125 mg tablet 1 tablet PO Q12H 7 Days Qty: 14 0RF No Action atorvastatin 20 mg tablet 20 mg PO DAILY aspirin 81 mg Tablet 81 mg PO DAILY losartan 50 mg tablet 50 mg PO DAILY Qty: 90 3RF amlodipine 5 mg tablet See Rx Instructions .ROUTE .COMPLEX Qty: 90 1RF Dose Instruction: TAKE 1 TABLET BY MOUTH DAILY Rx Instructions: TAKE 1 TABLET BY MOUTH DAILY omeprazole 20 mg capsule,delayed release(DR/EC) See Rx Instructions .ROUTE .COMPLEX Qty: 90 2RF Dose Instruction: TAKE 1 CAPSULE BY MOUTH DAILY Rx Instructions: TAKE 1 CAPSULE BY MOUTH DAILY Follow-up/Referrals: Kem Seth MD [Primary Care Provider, [facility]] Time of Disposition: 17:27
== END 2025-02-11 17:30 | disposition home or self-care (01) ==
PROVIDERS: Emergency Provider Nurse Practitioner Family; PCP Family Medicine
DX: S30.861A Insect bite (nonvenomous) of abdominal wall, initial encounter (principal); W57.XXXA Bitten or stung by nonvenomous insect and other nonvenomous arthropods, initial encounter; I12.9 Hypertensive chronic kidney disease with stage 1 through stage 4 chronic kidney disease, or unspecified chronic kidney disease; N18.30 Chronic kidney disease, stage 3 unspecified; N40.0 Benign prostatic hyperplasia without lower urinary tract symptoms; I20.1 Angina pectoris with documented spasm; E78.5 Hyperlipidemia, unspecified; Z79.82 Long term (current) use of aspirin
CPT/HCPCS: 99213; G0463